=== PATIENT | male | born 1965 | race African-American/Black ===

== ENCOUNTER 2022-11-27 17:57 | Emergency (ER) | payer MEDICAID ==
[~2022-11-27 17:57] MED LIST: DEPAKOTE; SEROQUEL
== END 2022-11-27 18:27 | disposition left against medical advice (07) ==
LOC: ER 18:03
DX: Z53.21 Procedure and treatment not carried out due to patient leaving prior to being seen by health care provider (principal)
CPT/HCPCS: 99281

== ENCOUNTER 2023-08-28 08:32 | Emergency (ER) | payer OTHER ==
[~2023-08-28] VITALS: Ht 175.3 cm; Wt 65.8 kg
[2023-08-28 08:42] VITALS: BP 124/81; PULSE 83; RESP 16; TEMP 99; O2SAT 99
== END 2023-08-28 12:34 | disposition left against medical advice (07) ==
LOC: ER 08:32
DX: R07.81 Pleurodynia (principal); Z53.21 Procedure and treatment not carried out due to patient leaving prior to being seen by health care provider

== ENCOUNTER 2024-08-17 02:47 | Emergency (ER) | payer OTHER ==
[~2024-08-17] VITALS: Ht 172.7 cm; Wt 60.9 kg
[2024-08-17 02:55] VITALS: O2SAT 100
[2024-08-17] MEDS: ACETAMINOPHEN 500MG TABLET PO ONE (03:41)
[2024-08-17] MEDS: LIDOCAINE 5% PATCH TOP SCH (03:42)
[2024-08-17] MEDS ORDERED: LIDO-53 TP (03:48)
[2024-08-17] MEDS ORDERED: NAPR-1176 MT (03:48)
[2024-08-17 04:17] VITALS: BP 105/71; PULSE 85; RESP 16; TEMP 36.7; O2SAT 100
== END 2024-08-17 04:16 | disposition home or self-care (01) ==
LOC: ER 02:47
DX: G89.29 Other chronic pain (principal); M54.9 Dorsalgia, unspecified; Z79.1 Long term (current) use of non-steroidal anti-inflammatories (NSAID); Z79.899 Other long term (current) drug therapy
CPT/HCPCS: 99283; Z7610